=== PATIENT | male | born 1940 | race Caucasian/White ===

== ENCOUNTER → 2018-04-16 09:09 | Day surgery (SDC) | payer BC ==
[~2018-04-16 09:09] MED LIST: Acetaminophen TAB* 325 MG PO PRN; Bupivacaine 0.25% EPI 200,000* 30 ML SDV ONE; DiMENhydriNATE IV* 50 MG/ML VIAL IV PUSH PRN; HYDROcodone/ACETAMIN 5-325 MG* 1 TAB ONE; HYDROcodone/ACETAMIN 5-325 MG* 1 TAB PO PRN; Lidocaine 2% PF * 5 ML VIAL ONE; Metoclopramide IV* 5 MG/ML 2 ML VIAL ONE; Morphine INJ* 2 MG/ML 1 ML SYRINGE (TWO MG - NEW SYRINGE VERSION) ONE; Morphine VIAL* 10 MG/ML 1 ML VIAL ONE; Naloxone* 0.4 MG/ML 1 ML VIAL IV PRN; Ondansetron INJ* 2 MG/ML VIAL IV PRN; Ondansetron INJ* 2 MG/ML VIAL ONE; Propofol* 10 MG/ML 20 ML BTL IV PUSH ONE; Rocuronium* 10 MG/ML VIAL ONE; Sugammadex * 200 MG/2 ML VIAL IV PUSH ONE; ceFAZolin 2 GM in NS PREMIX(*) 2 GM/100 ML BAG IVPB ONE; fentaNYL* 50 MCG/ML 2 ML VIAL (100 MCG VIAL) ONE; fentaNYL* 50 MCG/ML 5 ML VIAL (250 MCG VIAL) ONE
[2018-04-16] MEDS: fentaNYL* 50 MCG/ML 2 ML VIAL (100 MCG VIAL) IV PRN ×5 (14:04→15:35)
[2018-04-16] MEDS: Morphine INJ* 2 MG/ML 1 ML SYRINGE (TWO MG - NEW SYRINGE VERSION) IV PRN ×2 (14:15→14:29)
[2018-04-16 15:59] VITALS: BP 126/72
--- NOTE | 2018-04-18 14:30 | OP ---
OPERATIVE REPORT: DATE OF OPERATION: 04/16/18 DATE OF : 44 SURGEON: Cal De La Fuente MD MANAGER OF EMPLOYEE RELATIONS: ROXANE Bailey PA was required as an customer care assistant to assist with positioning, retraction, instrumentation, and closur e. ANESTHESIOLOGIST: Dr. Bart López. ANESTHESIA: General anesthesia, local anesthesia approximately 10 cc of 0.25% Marcaine with epinephr ine. PRE-OP DIAGNOSES: 1. Right elbow triceps tendon tear. 2. Right elbow cubital tunnel syndrome. POST-OP DIAGNOSES: 1. Right elbow triceps tendon tear. 2. Right elbow cubital tunnel syndrome. OPERATIVE PROCEDURE: 1. Right open elbow triceps tendon repair. 2. Right elbow open cubital tunnel ulnar nerve decompression, in situ. INDICATIONS: The patient is a 77-year-old man, who sustained a fall on approximately 03/16/18. I sa w the patient in clinic and based on x-ray imaging, which showed a small du of bone avulsed off th e proximal ulna, and based on physical exam diagnosed him with a distal triceps tendon tear. Ordered an MRI. It showed at least a high-grade partial-thickness tear of the distal triceps tendon. In my experience, MRIs tend to underestimate the amount of the tear. It also showed high-grade partial tea ring of the common extensor tendon. The patient had some numbness and tingling afterwards in the rin g and small finger. The patient has a history in this ipsilateral right upper extremity of a carpal tunnel release, as well as cervical spine surgery for radicular symptoms. Discussed with the patient nonoperative and operative management of this injury. The patient was inte rested in surgical management of both of the tendon injury and of any possible constriction to the ul charlene nerve about the elbow, especially given his history of nerve compression at the level of the neck , and carpal tunnel. Discussed the postoperative recovery process. Discussed risks and potential complications of surgery including bleeding, infection, nerve or blood vessel injury, elbow pain, stiffness, osteoarthritis, re-rupture of tendon, redevelopment of nerve compression symptoms. The patient opted for surgery. T he patient did fall again prior to surgery and we spoke on the phone. He described increased pain an d increased weakness about that right elbow. ANTIBIOTICS: Ancef 2 g IV. IV FLUIDS: 1000 cc crystalloid. TOURNIQUET TIME: 75 minutes at 250 mmHg. UYEC-YS-DOZP TIME: 72 minutes. SPECIMENS: None. IMPLANTS: Mitek Gryphon suture anchor, doubly loaded x1. FiberWire #2 suture. COMPLICATIONS: None. ESTIMATED BLOOD LOSS: Minimal. PATIENT POSITIONING: Lateral decubitus. DESCRIPTION OF PROCEDURE: The patient signed a written consent in preoperative holding. Operative e xtremity was marked in preoperative holding. The patient was taken back to the operating room and pl aced supine on operating room table. The patient was sedated and intubated. The patient was convert ed to a lateral decubitus position with a kaye bag. Kaye bag was hardened. Axillary roll was placed . All bony prominences were padded. An arm kay was placed about the proximal upper arm. This pr esented the right upper extremity nicely for surgery. The right upper extremity was prepped and draped. Surgical time-out was performed. I applied an Esmarch and inflated the tourniquet to 250 mmHg. I made a straight posterior longitudin al incision that curved medially around the tip of the olecranon through the skin, centered just prox imal to the olecranon tip. I exchanged knives and dissected down to the extensor mechanism. I then used scissor dissection. There was not a vidal paratenon overlying the triceps tendon that could be repaired. I encountered a very high-grade tear of the triceps tendon. There might have been a few holden perior fibers of the triceps still intact, attaching to the superior most end of the insertion of the triceps tendon on the proximal ulna. I extended the incision distally. I incised the fascia overlying the proximal ulna and reflected it off the bone in anticipation of my future bone tunnels. At this point, I then went about doing the cubital tunnel in situ ulnar nerve decompression. I found a significant amount of scar tissue about the medial elbow. 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 I released the ulnar nerve from 6 to 8 cm proximal of the medial epicondyle t o a level distal between the 2 muscle bellies of the FCU muscle. The ulnar nerve was completely free . Especially at the level of the cubital tunnel, there was a significant constriction. With the elb ow fully flexed, the ulnar nerve did not sublux. I then returned to the triceps repair. I debrided the insertion on the proximal ulna with a rongeur and curette. I next drilled 2 tunnels each with a 2-mm drill bit from proximal to distal, crossing. I placed passing suture through each of these. I believe this was done with a Vicryl or Ethibond 0 suture. I next placed a Mitek Gryphon more proximally in the footprint, and aiming it distal. I next freed up a little bit more of the triceps tendon. I placed 2 Krackow stitches in that tendon using FiberWire #2 suture. I next placed 2 horizontal mattress stitches with sutures from the Mitek Gryphon anchor. I placed the elbow in near full extension. I reduced fully the triceps tendons and tied my distal holden tures. I moved the knots towards the lateral aspect of the proximal ulna. This brought down the tri ceps tendon nicely. I next tied my horizontal mattress stitches with the suture from the Mitek Gryph on anchor. I then tested a safe range of motion. I was able to flex the elbow to at least 45 or 50 degrees with out any significant tension or movement at the repair site. I chose not to flex the elbow more. I next placed some supplemental lanmtj-cw-xnden stitches medial and lateral to my main triceps repair , repairing fascia with Ethibond 0 and Vicryl 0 suture. I also repaired the proximal forearm fascia layer with [id number]-[id number] stitches using Vicryl 0 suture. Irrigation. Closure of the subcutaneous layer with buried simple stitches using Vicryl 2-0 suture. Closure of the skin with a running stitch using nylon 4-0 suture. Next, placed some local anesthetic, approximately 10 cc of Marcaine 0.25% with epinephrine. Xeroform , 4x4s, ABD, sterile Webril. Drapes were taken down. Nonsterile Webril was applied. I then applied a long-arm splint using plast er. I placed a posterior slab and then a sugar-tong forearm slab. I placed these with the elbow in approximately 30 degrees of flexion. The patient was awakened and extubated and converted to the sup ine position. The patient was placed in a sling. DISPOSITION: The patient was discharged home when medically stable. The patient will remain in the splint. Percocet was given to take as needed for pain control. The patient was given a short course of 3 days of Keflex antibiotics to prevent wound infection. The patient will follow up with me in 10 to 14 days postoperatively for a wound check and removal of stitches. I gave the option of the mike ent following up with me in clinic sooner if he wants to be converted to an elbow brace sooner. I di scussed that with the patient and also with his perioperatively. [id number] #: [id number]
== END | disposition home or self-care (01) ==
LOC: OR 09:09
PROVIDERS: ATTEND Orthopaedic Surgery
DX: S46.301A Unspecified injury of muscle, fascia and tendon of triceps, right arm, initial encounter (principal); G56.21 Lesion of ulnar nerve, right upper limb; Z86.718 Personal history of other venous thrombosis and embolism; Z79.01 Long term (current) use of anticoagulants; J44.9 Chronic obstructive pulmonary disease, unspecified; E11.9 Type 2 diabetes mellitus without complications; Z79.84 Long term (current) use of oral hypoglycemic drugs; E66.01 Morbid (severe) obesity due to excess calories; I10 Essential (primary) hypertension; E78.5 Hyperlipidemia, unspecified; K21.9 Gastro-esophageal reflux disease without esophagitis; M19.90 Unspecified osteoarthritis, unspecified site; F41.8 Other specified anxiety disorders; W19.XXXA Unspecified fall, initial encounter; Y92.9 Unspecified place or not applicable
CPT/HCPCS: J0690; J2270; J2405; J2704; J2765; J3010